=== PATIENT | female | born 1975 | race American Indian/Alaskan Native ===

== ENCOUNTER 2016-07-24 22:20 | Emergency (ER) | payer OTHER ==
[2016-07-25 00:08] LABS: Anion Gap 22 mmol/L; BUN/Creatinine Ratio 14.28; Blood Urea Nitrogen 10 mg/dL (7-17); Calcium 9.2 mg/dL (8.4-10.2); Carbon Dioxide 23 mmol/L (22-30); Chloride 97.9 mmol/L (98-107); Glucose 103 mg/dL (65-100); Potassium 3.1 mmol/L (3.6-5.0); Sodium 140 mmol/L (137-145)
[2016-07-25 00:17] LABS: Basophils % (Auto) 0.5 % (0.0-1.8); Eosinophils % (Auto) 0.2 % (0.0-4.3); Hemoglobin 14.2 gm/dl (10.1-14.3); Mean Corpuscular HGB Conc 34 % (30-34); Mean Corpuscular Hemoglobin 28 pg (28-32); Mean Corpuscular Volume 83 fl (79-97); Platelet Count 331 K/mm3 (140-440); Red Blood Count 5.09 M/mm3 (3.65-5.03); Red Cell Distribution Width 13.3 % (13.2-15.2); White Blood Count 9.2 K/mm3 (4.5-11.0)
[2016-07-25 00:24] LABS: Bilirubin,Urine NEG (Negative); Blood,Urine MOD (Negative); Ketones,Urine 20 mg/dL (Negative); Leukocyte Esterase,Urine NEG (Negative); Mucus,Urine 3+ /HPF; Nitrite,Urine NEG (Negative)
[2016-07-25] MEDS ORDERED: ZOFRAN ONE (05:28)
[2016-07-25] MEDS ORDERED: NACL 0.9% 1000 ML 1,000 ML ONE (05:28)
[2016-07-25] MEDS ORDERED: NACL 0.9% 1000 ML 1,000 ML IV ONE ×3 (05:48→09:57)
[2016-07-25] MEDS ORDERED: ZOFRAN IV ONE ×2 (05:48→06:45)
[2016-07-25] MEDS ORDERED: REGLAN IV ONE (06:45)
--- NOTE | 2016-07-25 06:48 | Emergency Department Report ---
ED N/V/D HPI - General Chief complaint: Nausea/Vomiting/Diarrhea Stated complaint: VOMITING/BODYACHES/CHILLS/HEADACHE Time Seen by Provider: 07/25/16 06:20 Source: patient Mode of arrival: Wheelchair Limitations: No Limitations - History of Present Illness MD complaint: nausea, vomiting, diarrhea, abdominal pain -: Gradual Description of Vomiting: food contents, watery, bilious Description of Diarrhea: water Associated Abdominal Pain: Yes Location: diffuse Radiation: none Severity: mild Quality: cramping Consistency: intermittent Improves with: none Worsens with: none Associated Symptoms: cough, malaise, nausea/vomiting. denies: denies other symptoms, myalgias, chest pain, headaches, loss of appetite, shortness of breath , syncope, weakness - Related Data Previous Rx's Medication Instructions Recorded Last Taken Type Lisinopril/Hydrochlorothiazide 1 tab PO QDAY #90 tablet 07/25/16 Unknown Rx [Zestoretic 10-12.5 mg] Methimazole [Tapazole] 5 mg PO QDAY #90 tablet 07/25/16 Unknown Rx Ondansetron [Zofran Odt] 4 mg PO TID #15 tab.rapdis 07/25/16 Unknown Rx Allergies Allergy/AdvReac Type Severity Reaction Status Date / Time No Known Allergies Allergy Verified 07/24/16 22:37 ED Review of Systems ROS: Stated complaint: VOMITING/BODYACHES/CHILLS/HEADACHE Other details as noted in HPI Comment: All other systems reviewed and negative ED Past Medical Hx - Past Medical History Previous Medical History?: Yes Hx Hypertension: Yes Additional medical history: hyperthyroid, Factor V deficiency - Surgical History Past Surgical History?: Yes Additional Surgical History: tonsil, tubal ligation. fibroids - Social History Smoking Status: Never Smoker Substance Use Type: None - Medications Home Medications: Home Medications Medication Instructions Recorded Confirmed Last Taken Type Lisinopril/Hydrochlorothiazide 1 tab PO QDAY #90 tablet 07/25/16 Unknown Rx [Zestoretic 10-12.5 mg] Methimazole [Tapazole] 5 mg PO QDAY #90 tablet 07/25/16 Unknown Rx Ondansetron [Zofran Odt] 4 mg PO TID #15 tab.rapdis 07/25/16 Unknown Rx ED Physical Exam - General Limitations: No Limitations General appearance: alert, in no apparent distress - Head Head exam: Present: atraumatic, normocephalic - Eye Eye exam: Present: normal appearance - ENT ENT exam: Present: mucous membranes moist - Neck Neck exam: Present: normal inspection - Respiratory Respiratory exam: Present: normal lung sounds bilaterally. Absent: respiratory distress - Cardiovascular Cardiovascular Exam: Present: regular rate, normal rhythm. Absent: systolic murmur, diastolic murmur, rubs, gallop - GI/Abdominal GI/Abdominal exam: Present: soft, normal bowel sounds. Absent: distended, tenderness, guarding, rebound, rigid - Extremities Exam Extremities exam: Present: normal inspection - Back Exam Back exam: Present: normal inspection - Neurological Exam Neurological exam: Present: alert, oriented X3 - Psychiatric Psychiatric exam: Present: normal affect, normal mood - Skin Skin exam: Present: warm, dry, intact, normal color. Absent: rash ED Course Vital Signs 07/24/16 07/25/16 07/25/16 22:32 02:52 02:58 Temperature 98.5 F Pulse Rate 94 H 77 Respiratory 18 16 Rate Blood Pressure 148/102 Blood Pressure 143/99 [Left] O2 Sat by Pulse 98 98 98 Oximetry 07/25/16 07/25/16 07/25/16 03:00 03:10 03:20 Temperature Pulse Rate Respiratory Rate Blood Pressure 143/99 140/90 128/93 Blood Pressure [Left] O2 Sat by Pulse 98 99 97 Oximetry 07/25/16 07/25/16 07/25/16 03:30 03:40 03:50 Temperature Pulse Rate Respiratory Rate Blood Pressure 128/93 142/96 140/93 Blood Pressure [Left] O2 Sat by Pulse 97 96 96 Oximetry 07/25/16 07/25/16 07/25/16 04:00 04:10 04:20 Temperature Pulse Rate 100 H Respiratory Rate Blood Pressure 140/93 139/99 151/108 Blood Pressure [Left] O2 Sat by Pulse 98 99 98 Oximetry 07/25/16 07/25/16 07/25/16 04:30 04:40 04:50 Temperature Pulse Rate Respiratory Rate Blood Pressure 151/108 137/94 147/102 Blood Pressure [Left] O2 Sat by Pulse 97 98 99 Oximetry 07/25/16 07/25/16 07/25/16 05:00 05:10 05:20 Temperature Pulse Rate Respiratory Rate Blood Pressure 147/102 142/96 130/92 Blood Pressure [Left] O2 Sat by Pulse 97 95 97 Oximetry 07/25/16 07/25/16 07/25/16 05:38 05:41 05:46 Temperature Pulse Rate 110 H Respiratory Rate Blood Pressure 137/94 137/94 Blood Pressure [Left] O2 Sat by Pulse 97 96 Oximetry 07/25/16 07/25/16 07/25/16 05:51 06:00 06:11 Temperature Pulse Rate Respiratory Rate Blood Pressure 139/91 133/87 133/87 Blood Pressure [Left] O2 Sat by Pulse 97 96 97 Oximetry 07/25/16 07/25/16 07/25/16 06:20 06:30 06:43 Temperature 98.8 F Pulse Rate 111 H Respiratory Rate Blood Pressure 133/87 150/103 Blood Pressure [Left] O2 Sat by Pulse 97 97 Oximetry 07/25/16 07:45 Temperature Pulse Rate 109 H Respiratory Rate Blood Pressure Blood Pressure [Left] O2 Sat by Pulse Oximetry ED Medical Decision Making - Lab Data Result diagrams: 07/24/16 22:48 07/24/16 22:48 - Medical Decision Making patient doing well, tolerating po here in the ER, likely gastroenteritis, labs with mild hypokalemia, will dc and follow up. Critical care attestation.: If time is entered above; I have spent that time in minutes in the direct care of this critically ill patient, excluding procedure time. ED Disposition Clinical Impression: Vomiting Disposition: DISCHARGED TO HOME OR SELFCARE Is pt being admited?: No Does the pt Need Aspirin: No Condition: Good Instructions: Gastroenteritis (ED), Acute Nausea and Vomiting (ED) Prescriptions: Lisinopril/Hydrochlorothiazide [Zestoretic 10-12.5 mg] 1 tab PO QDAY #90 tablet Methimazole [Tapazole] 5 mg PO QDAY #90 tablet Ondansetron [Zofran Odt] 4 mg PO TID #15 tab.terrell Referrals: PRIMARY CARE, [Primary Care Provider] - 3-5 Days Time of Disposition: 10:44
--- NOTE | 2016-07-25 07:34 | XRay Report ---
Abdomen, 2 views: History: Nausea, vomiting and diarrhea. Abdominal pain. Findings: Multiple small air-fluid levels are identified throughout the abdomen. No dilated bowel or free air is identified. No pathologic calcifications. Normal stool in the colon. An approximate 2 cm calcification in the right side of the pelvis probably represents a small uterine fibroid. Impression: Findings consistent with gastroenteritis or a mild diffuse ileus. No acute abdominal findings.
[2016-07-25] MEDS ORDERED: K-DUR PO ONE (09:57)
[2016-07-25 12:29] VITALS: BP 140/79
== END 2016-07-25 12:37 | disposition home or self-care (01) ==
LOC: ED 22:20
DX: R11.2 Nausea with vomiting, unspecified (principal); I10 Essential (primary) hypertension; Z98.51 Tubal ligation status
CPT/HCPCS: 36415; 74020; 80048; 81001; 84443; 84703; 85025; 96361; 96374; 96375; 99284; J2405; J2765; J7030; 82962